=== PATIENT | female | born 1980 | race Caucasian/White ===

== ENCOUNTER 2016-10-09 16:21 | Outpatient (CLI) | payer BC ==
[~2016-10-09] VITALS: Ht 162.6 cm; Wt 82.1 kg
[2016-10-09] MEDS ORDERED: ACID CONTROL150 MG PO (16:38)
[2016-10-09] MEDS ORDERED: FLINTSTONES1 EACH PO (16:39)
[2016-10-09] MEDS ORDERED: PROMETHAZINE HC25 M1 PO (16:39)
[2016-10-09 16:46] VITALS: BP 128/80
[2016-10-09 19:09] VITALS: BP 121/81
[2016-10-09 19:46] LABS: ADD MIUA? NO; BILIRUBIN NEGATIVE; BLOOD NEGATIVE; COLOR YELLOW ((YELLOW)); GLUCOSE (STRIP) NEGATIVE; KETONES 5; LEUKOCYTES NEGATIVE; NITRITE NEGATIVE; PROTEIN (STRIP) NEGATIVE; SPECIFIC GRAVITY 1.004 (1.000-1.030); UCUL ADDED? NO; UROBILINOGEN 0.2 MG/DL (0.2-1.0)
[2016-10-09 19:48] LABS: POINT-OF-CARE METER ID UU13113801
[2016-10-09 20:05] LABS: AMPHETAMINE NEGATIVE (500 ng/mL); BARBITURATES NEGATIVE (200 ng/mL); BENZODIAZEPINES NEGATIVE (150 ng/mL); COCAINE NEGATIVE (150 ng/mL); INTERNAL CONTROLS VALID? YES; METHADONE NEGATIVE (200 ng/mL); METHAMPHETAMINE NEGATIVE (500 ng/mL); OPIATES (MORPHINE) NEGATIVE (100 ng/mL); OXYCODONE NEGATIVE (100 ng/mL); PHENCYCLIDINE NEGATIVE (25 ng/mL); PROPOXYPHENE NEGATIVE (300 ng/mL); THC CANNABINOIDS NEGATIVE (50 ng/mL); TRICYCLIC ANTIDEPRESSANTS NEGATIVE (300 ng/mL)
[2016-10-09 20:17] VITALS: BP 127/80
[2016-10-09 22:57] LABS: CANDIDA DNA PROBE NEGATIVE; GARDNERELLA DNA PROBE POSITIVE; INTERNAL CONTROL VALID? YES
== END 2016-10-09 21:30 | disposition home or self-care (01) ==
LOC: LDRP-OP → 2WEST 16:22 → LDRP-OP 12-08 15:33
PROVIDERS: Advanced Practice Midwife; Obstetrics & Gynecology Obstetrics
DX: O60.03 Preterm labor without delivery, third trimester (principal); Z3A.35 35 weeks gestation of pregnancy
CPT/HCPCS: 59025; 81003; 82948; 87086; 87480; 87510; 87660; G0378; J3105; J7120

== ENCOUNTER 2016-11-01 04:49 | Inpatient (IN) | payer BC ==
[2016-11-01] VITALS (7 sets, daily range): BP systolic 117–141; BP diastolic 62–85
[~2016-11-01] VITALS: Ht 162.6 cm; Wt 86.8 kg
[~2016-11-01 04:49] MED LIST: ACID CONTROL150 MG PO; ACID REDUCER75 MG PO; FLINTSTONES1 EACH PO; HEMATOGEN FORT1 EACH PO; MILK OF MAGNESI10 ML PO; PROMETHAZINE HC25 M1 PO; TYLENOL PM1 CAPLET PO
[2016-11-01 06:16] LABS: EOSINOPHIL (%) 0.5 % (0-5); HEMATOCRIT 39.1 % (36.0-46.0); IMMATURE GRANULOCYTE (%) 0.6 % (0.0-0.7); IMMATURE GRANULOCYTE COUNT 0.1 K/uL; INSTRUMENT ABS NEUTROPHIL CT 6.6 K/uL; LYMPHOCYTE COUNT 1.2 K/uL (1.0-2.8); MCH 30.8 PG (29.0-34.0); MCHC 34.3 G/DL (30.0-36.0); MCV 89.9 FL (83-99); MEAN PLAT.VOLUME 12.4 uM^3 (9.5-12.4); MONOCYTE (%) 6.8 % (3-12); MONOCYTE COUNT 0.6 K/uL (0-0.8); NEUTROPHIL (%) 77.6 % (45-76); NEUTROPHIL COUNT 6.6 K/uL (1.8-6.4); PLATELET COUNT 141 K/uL (156-360); RBC DIS.WIDTH-CV 13.3 % (11.8-14.6); RBC DIS.WIDTH-SD 43.9 % (39-53); RED BLOOD COUNT 4.35 M/uL (3.80-5.20); WHITE BLOOD COUNT 8.5 K/uL (4.1-10.2)
[2016-11-01 15:44] LABS: POINT-OF-CARE METER ID UU13113692
[2016-11-02 03:00] VITALS: BP 131/85
[2016-11-02 06:40] LABS: EOSINOPHIL (%) 0.4 % (0-5); HEMATOCRIT 33.9 % (36.0-46.0); IMMATURE GRANULOCYTE (%) 0.5 % (0.0-0.7); INSTRUMENT ABS NEUTROPHIL CT 6.5 K/uL; LYMPHOCYTE COUNT 0.8 K/uL (1.0-2.8); MCH 31.6 PG (29.0-34.0); MCHC 34.5 G/DL (30.0-36.0); MCV 91.6 FL (83-99); MONOCYTE (%) 6.3 % (3-12); MONOCYTE COUNT 0.5 K/uL (0-0.8); NEUTROPHIL (%) 82.1 % (45-76); NEUTROPHIL COUNT 6.5 K/uL (1.8-6.4); PLATELET COUNT 121 K/uL (156-360); RBC DIS.WIDTH-CV 13.5 % (11.8-14.6); RBC DIS.WIDTH-SD 45.6 % (39-53); WHITE BLOOD COUNT 7.9 K/uL (4.1-10.2)
[2016-11-02 07:36] VITALS: BP 107/69
[2016-11-02 10:57] VITALS: BP 113/77
[2016-11-02 14:19] VITALS: BP 142/86
[2016-11-02 23:00] VITALS: BP 137/76
[2016-11-03 03:00] VITALS: BP 116/81
[2016-11-03 07:26] VITALS: BP 130/80
[2016-11-03 11:06] VITALS: BP 143/83
[2016-11-03 14:33] VITALS: BP 119/78
[2016-11-03 19:48] VITALS: BP 130/85
[2016-11-03 23:00] VITALS: BP 125/81
[2016-11-04 02:47] VITALS: BP 105/62
[2016-11-04 07:36] VITALS: BP 153/82
[2016-11-04 08:02] VITALS: BP 136/90
[2016-11-04] MEDS ORDERED: ENDOCET 5-3251 EACH PO (08:31)
[2016-11-04] MEDS ORDERED: IBUPROFEN800 MG PO (08:31)
[2016-11-04 10:59] VITALS: BP 128/75
== END 2016-11-04 11:54 | disposition home or self-care (01) | DRG 766 ==
LOC: 2WEST 04:49 → 2SOUTH 08:50 → 2WEST 11-04 11:54
PROVIDERS: Obstetrics & Gynecology
PROC: 10D00Z1 Extraction of Products of Conception, Low, Open Approach (ICD-10-PCS; principal; 2016-11-01)
DX: O24.420 Gestational diabetes mellitus in childbirth, diet controlled (principal); O99.214 Obesity complicating childbirth; E66.9 Obesity, unspecified; O99.02 Anemia complicating childbirth; D64.9 Anemia, unspecified; O34.219 Maternal care for unspecified type scar from previous cesarean delivery; O77.0 Labor and delivery complicated by meconium in amniotic fluid; Z68.30 Body mass index [BMI] 30.0-30.9, adult; O99.62 Diseases of the digestive system complicating childbirth; K58.9 Irritable bowel syndrome, unspecified; K21.9 Gastro-esophageal reflux disease without esophagitis; Z37.0 Single live birth; Z3A.39 39 weeks gestation of pregnancy; Z82.3 Family history of stroke; O99.344 Other mental disorders complicating childbirth; F41.9 Anxiety disorder, unspecified
CPT/HCPCS: 82948; 85025; 86900; 86901; 88307; J0690; J1170; J1885; J2175; J2250; J2274; J2405; J3010; J7120